=== PATIENT | female | born 1970 | race Hispanic/Latino ===

== ENCOUNTER 2022-11-27 13:21 | Inpatient (IN) | payer SELFPAY ==
[~2022-11-27] VITALS: Ht 154.9 cm; Wt 65.8 kg
[2022-11-27] MEDS ORDERED: SODIUM CHLORIDE 0.9% 1000ML 1,000 ML IV STA (13:42)
[2022-11-27] MEDS ORDERED: Morphine 4mg INJECTION 4 MG/ML INJ IV STA (13:42)
[2022-11-27] MEDS ORDERED: ONDANSETRON HCL INJ 2MG/ML 2ML 2 MG/ML VIAL IV STA (13:42)
[2022-11-27] MEDS ORDERED: SODIUM CHLORIDE 0.9% 1000ML 1,000 ML ONE (13:46)
[2022-11-27] MEDS ORDERED: ONDANSETRON HCL INJ 2MG/ML 2ML 2 MG/ML VIAL ONE (13:46)
[2022-11-27] MEDS ORDERED: Morphine 4mg INJECTION 4 MG/ML INJ ONE (13:46)
[2022-11-27 14:07] LABS: BASOPHILS # (AUTO) 0.1 (0.0-0.1); BASOPHILS % 0.7 % (0.0-1.0); EOSINOPHILS % 0.1 % (0.0-6.0); LYMPHOCYTES # (AUTO) 2.3 (1.0-3.2); LYMPHOCYTES % 16.7 % (18.0-39.1); MEAN CORPUSCULAR HEMOGLOBIN 30.9 pg (28-32); MEAN CORPUSCULAR HGB CONC 32.6 g/dL (31-35); MEAN CORPUSCULAR VOLUME 94.8 fL (81-99); MONOCYTES # (AUTO) 0.7 (0.2-0.8); MONOCYTES % 5.2 % (4.4-11.3); NEUTROPHILS # (AUTO) 10.4 (2.1-6.9); NEUTROPHILS % 76.9 % (38.7-80.0); PLATELET COUNT 430 x10e3/uL (140-360); RED BLOOD COUNT 4.85 x10e6/uL (3.6-5.1); RED CELL DISTRIBUTION WIDTH 12.7 % (11.7-14.4)
[2022-11-27 14:14] LABS: INR 0.86; PROTHROMBIN TIME 12.2 seconds (11.9-14.5)
[2022-11-27 14:15] LABS: PARTIAL THROMBOPLASTIN TIME 27.8 seconds (23.8-35.5)
[2022-11-27 14:22] LABS: ALBUMIN 4.1 g/dL (3.5-5.0); ALBUMIN/GLOBULIN RATIO 0.9 (0.8-2.0); ANION GAP 14.8 mmol/L (8-16); CREATININE, SERUM 0.8 mg/dL (0.57-1.11); MAGNESIUM 2.8 MG/DL (1.3-2.1); POTASSIUM 3.8 mmol/L (3.5-5.1)
[2022-11-27] MEDS ORDERED: IOPAMIDOL 370 MG/ML 100 ML INFUS..BTL INJ ONE (14:29)
[2022-11-27 14:30] LABS: CLARITY,URINE TURBID (CLEAR); COLOR,URINE YELLOW (YELLOW); KETONES,URINE TRACE (NEGATIVE); LEUKOCYTE ESTERASE ,URINE NEGATIVE (NEGATIVE); NITRITE,URINE NEGATIVE (NEGATIVE); PROTEIN,URINE DIPSTICK 1+ (NEGATIVE); URINE UROBILINOGEN 0.2 mg/dL (0.2 - 1)
[2022-11-27 14:50] LABS: BACTERIA,URINE FEW /HPF; EPITHELIAL CELLS,URINE MODERATE /LPF
[2022-11-27] MEDS ORDERED: ONDANSETRON HCL INJ 2MG/ML 2ML 2 MG/ML VIAL IV PRN (16:45)
[2022-11-27] MEDS ORDERED: SODIUM CHLORIDE 0.9% 1000ML 1,000 ML IV SCH (16:45)
[2022-11-27 18:04] VITALS: BP 115/80
[2022-11-27] MEDS ORDERED: SUBOXONE 8 MG-1 EAC2 PO (18:15)
[2022-11-27] MEDS ORDERED: XANAX1 MG PO (18:15)
[2022-11-27] MEDS: Morphine 4mg INJECTION 4 MG/ML INJ IV PRN ×2 (18:34→22:34)
[2022-11-27] MEDS ORDERED: SIMETHICONE 80 MG CHEW PO PRN (20:30)
[2022-11-27] MEDS ORDERED: ALBUTEROL/IPRATROPIUM 3 ML NEB NEB PRN (20:30)
[2022-11-27] MEDS ORDERED: DEXTROSE 50% SYRINGE 50 ML IV PRN (20:30)
[2022-11-27] MEDS ORDERED: POTASSIUM CHLORIDE 20 MEQ TAB CR PO PRN (20:30)
[2022-11-27] MEDS ORDERED: ACETAMINOPHEN 325 MG TAB PO PRN (20:30)
[2022-11-27] MEDS ORDERED: MELATONIN 5 MG TABLET PO PRN (20:30)
[2022-11-27] MEDS ORDERED: DOCUSATE SODIUM 100 MG CAP PO PRN (20:30)
[2022-11-27] MEDS ORDERED: DIPHENHYDRAMINE HCL 25 MG CAP PO PRN (20:30)
[2022-11-27] MEDS ORDERED: HYDRALAZINE HCL 20 MG/ML VIAL IV PRN (20:30)
[2022-11-27] MEDS ORDERED: LIDOCAINE 4% PATCH TP PRN (20:30)
[2022-11-27] MEDS ORDERED: BENZONATATE 100 MG CAP PO PRN (20:30)
[2022-11-27 20:44] VITALS: BP 126/70
[2022-11-27 21:00] VITALS: BP 126/70
[2022-11-27] MEDS ORDERED: ALBUTEROL SULF 0.083% NEB SOLN 3 ML NEB NEB PRN (21:00)
[2022-11-27] MEDS ORDERED: IPRATROPIUM BROMIDE 0.02% 2.5 ML NEB NEB PRN (21:00)
[2022-11-27] MEDS: DEXTROSE 5%/0.9% SOD CHL 1,000 ML IV SCH (22:26)
[2022-11-28] VITALS (7 sets, daily range): BP systolic 86–120; BP diastolic 60–85
[2022-11-28] MEDS: Morphine 4mg INJECTION 4 MG/ML INJ IV PRN ×3 (04:08→22:08)
[2022-11-28 04:55] LABS: BASOPHILS # (AUTO) 0.1 (0.0-0.1); BASOPHILS % 0.6 % (0.0-1.0); EOSINOPHILS # (AUTO) 0.2 (0.0-0.4); EOSINOPHILS % 1.8 % (0.0-6.0); HEMATOCRIT 38.6 % (34.2-44.1); HEMOGLOBIN 12.8 g/dL (12.0-16.0); LYMPHOCYTES # (AUTO) 3.2 (1.0-3.2); LYMPHOCYTES % 29.2 % (18.0-39.1); MEAN CORPUSCULAR HEMOGLOBIN 30.9 pg (28-32); MEAN CORPUSCULAR HGB CONC 33.2 g/dL (31-35); MEAN CORPUSCULAR VOLUME 93.2 fL (81-99); MONOCYTES # (AUTO) 0.8 (0.2-0.8); MONOCYTES % 6.9 % (4.4-11.3); NEUTROPHILS # (AUTO) 6.6 (2.1-6.9); NEUTROPHILS % 61.1 % (38.7-80.0); PLATELET COUNT 316 x10e3/uL (140-360); RED BLOOD COUNT 4.14 x10e6/uL (3.6-5.1); RED CELL DISTRIBUTION WIDTH 12.7 % (11.7-14.4)
[2022-11-28 05:14] LABS: ALBUMIN 3.3 g/dL (3.5-5.0); ANION GAP 13.5 mmol/L (8-16); CALCIUM 8.8 mg/dL (8.4-10.2); CREATININE, SERUM 0.63 mg/dL (0.57-1.11); POTASSIUM 3.5 mmol/L (3.5-5.1)
[2022-11-28] MEDS: DEXTROSE 5%/0.9% SOD CHL 1,000 ML IV SCH ×4 (06:30→23:39)
[2022-11-28] MEDS: PANTOPRAZOLE SOD 40 MG TABEC PO SCH (07:30)
[2022-11-28] MEDS: ONDANSETRON HCL INJ 2MG/ML 2ML 2 MG/ML VIAL IV PRN ×2 (10:40→22:07)
[2022-11-28] MEDS ORDERED: DEXAMETHASONE SOD PHOS INJ 4 MG/ML SDV ONE (13:08)
[2022-11-28] MEDS ORDERED: KETOROLAC TROMETHAMINE 30 MG/ML VIAL ONE (13:08)
[2022-11-28] MEDS ORDERED: ALBUTEROL SULFATE HFA 8GM INHALATION AEROSOL INH ONE (13:08)
[2022-11-28] MEDS ORDERED: POVIDONE IODINE 0.05% 0.05 % ML PO ONE (13:08)
[2022-11-28] MEDS ORDERED: EPHEDRINE SULFATE INJ 50 MG/ML VIAL ONE (13:08)
[2022-11-28] MEDS ORDERED: SEVOFLURANE INHAL SOLN 250 ML PEN BTL ONE (13:08)
[2022-11-28] MEDS ORDERED: ONDANSETRON HCL INJ 2MG/ML 2ML 2 MG/ML VIAL ONE (13:08)
[2022-11-28] MEDS ORDERED: ROCURONIUM BROMIDE 10 MG/ML 5ML VIAL IV ONE (13:08)
[2022-11-28] MEDS ORDERED: PROPOFOL IV EMULSION 10 MG/ML 20 ML VIAL ONE (13:08)
[2022-11-28] MEDS ORDERED: LIDOCAINE HCL 2% LOCAL INJ 5 ML SDV VIAL INJ ONE (13:08)
[2022-11-28] MEDS ORDERED: FENTANYL CITRATE/PF 100MCG/2 ML INJ ONE (13:50)
[2022-11-28] MEDS ORDERED: SUGAMMADEX SODIUM 200 MG/2 ML VIAL IV ONE (14:03)
[2022-11-28] MEDS ORDERED: ACETAMINOPHEN 1000 MG/100 ML 100 ML IV ONE (14:03)
[2022-11-28] MEDS ORDERED: BUPIVACAINE 0.5%/EPI 30 ML SDV INJ ONE (14:26)
[2022-11-28] MEDS: FENTANYL CITRATE/PF 100MCG/2 ML INJ ONE ×2 (16:56→17:02)
[2022-11-29] VITALS (8 sets, daily range): BP systolic 93–124; BP diastolic 49–82
[2022-11-29] MEDS: Morphine 4mg INJECTION 4 MG/ML INJ IV PRN ×2 (01:52→06:02)
[2022-11-29] MEDS: ONDANSETRON HCL INJ 2MG/ML 2ML 2 MG/ML VIAL IV PRN (06:02)
[2022-11-29] MEDS: PANTOPRAZOLE SOD 40 MG TABEC PO SCH (08:23)
[2022-11-29] MEDS: DEXTROSE 5%/0.9% SOD CHL 1,000 ML IV SCH (12:15)
[2022-11-29] MEDS ORDERED: KETOROLAC TROMETHAMINE 30 MG/ML VIAL IV PRN (14:00)
[2022-11-29 14:51] LABS: BASOPHILS # (AUTO) 0.1 (0.0-0.1); BASOPHILS % 0.7 % (0.0-1.0); EOSINOPHILS # (AUTO) 0.1 (0.0-0.4); HEMATOCRIT 34.4 % (34.2-44.1); LYMPHOCYTES # (AUTO) 2.4 (1.0-3.2); LYMPHOCYTES % 24.5 % (18.0-39.1); MEAN CORPUSCULAR HEMOGLOBIN 31.1 pg (28-32); MEAN CORPUSCULAR VOLUME 97.2 fL (81-99); MONOCYTES # (AUTO) 0.7 (0.2-0.8); MONOCYTES % 7.5 % (4.4-11.3); NEUTROPHILS # (AUTO) 6.4 (2.1-6.9); NEUTROPHILS % 65.9 % (38.7-80.0); PLATELET COUNT 278 x10e3/uL (140-360); RED BLOOD COUNT 3.54 x10e6/uL (3.6-5.1); RED CELL DISTRIBUTION WIDTH 12.8 % (11.7-14.4)
[2022-11-29 15:09] LABS: ANION GAP 11.8 mmol/L (8-16); CALCIUM 8.5 mg/dL (8.4-10.2); CREATININE, SERUM 0.64 mg/dL (0.57-1.11); POTASSIUM 3.8 mmol/L (3.5-5.1)
[2022-11-29] MEDS: HYDROCODONE/APAP 7.5MG-325MG 1 EA TAB PO PRN ×2 (18:52→23:10)
[2022-11-30] VITALS: BP 129/85
[2022-11-30] MEDS: HYDROCODONE/APAP 7.5MG-325MG 1 EA TAB PO PRN ×2 (03:57→10:25)
[2022-11-30 04:00] VITALS: BP 123/85
[2022-11-30 04:54] LABS: BASOPHILS # (AUTO) 0.1 (0.0-0.1); BASOPHILS % 0.8 % (0.0-1.0); EOSINOPHILS # (AUTO) 0.2 (0.0-0.4); EOSINOPHILS % 1.8 % (0.0-6.0); HEMATOCRIT 32.4 % (34.2-44.1); HEMOGLOBIN 10.7 g/dL (12.0-16.0); LYMPHOCYTES # (AUTO) 2.8 (1.0-3.2); LYMPHOCYTES % 28.4 % (18.0-39.1); MEAN CORPUSCULAR HEMOGLOBIN 30.6 pg (28-32); MEAN CORPUSCULAR VOLUME 92.6 fL (81-99); MONOCYTES # (AUTO) 0.6 (0.2-0.8); MONOCYTES % 5.7 % (4.4-11.3); NEUTROPHILS # (AUTO) 6.2 (2.1-6.9); PLATELET COUNT 278 x10e3/uL (140-360)
[2022-11-30 05:13] LABS: ANION GAP 11.5 mmol/L (8-16); CALCIUM 8.6 mg/dL (8.4-10.2); CREATININE, SERUM 0.59 mg/dL (0.57-1.11); POTASSIUM 3.5 mmol/L (3.5-5.1)
[2022-11-30] MEDS: PANTOPRAZOLE SOD 40 MG TABEC PO SCH (08:48)
[2022-11-30 08:53] VITALS: BP 121/92
[2022-11-30 08:57] VITALS: BP 121/92
[2022-11-30 09:14] VITALS: BP 121/92
[2022-11-30 12:58] VITALS: BP 130/80
== END 2022-11-30 15:35 | disposition home or self-care (01) | DRG 419 ==
LOC: ER 13:30 → ERHOLD 16:41 → MED/SURG 17:54
PROVIDERS: ADMIT Internal Medicine; ATTEND Internal Medicine
PROC: 0FT44ZZ Resection of Gallbladder, Percutaneous Endoscopic Approach (ICD-10-PCS; principal; 2022-11-28 14:52)
DX: K80.00 Calculus of gallbladder with acute cholecystitis without obstruction (principal); E86.0 Dehydration; M06.9 Rheumatoid arthritis, unspecified; F41.9 Anxiety disorder, unspecified; Z20.822 Contact with and (suspected) exposure to COVID-19
CPT/HCPCS: 0223U; 36415; 71045; 74177; 76705; 80048; 80053; 81001; 81025; 83690; 83735; 84484; 85025; 85610; 85730; 87086; 88304; 93005; 99284; J0690; J1100; J1885; J2001; J2270; J2405; J2543; J7030; J7042; Q9967